=== PATIENT | male | born 2005 | race African-American/Black ===

== ENCOUNTER 2025-03-07 17:35 | Emergency (ER) | payer MEDICAID ==
[~2025-03-07] VITALS: Ht 180.3 cm; Wt 80.0 kg
[2025-03-07 17:37] VITALS: O2SAT 97
[2025-03-07] MEDS ORDERED: LORAZEPAM 2MG/ML INJ IM ONE (18:00)
[2025-03-07] MEDS: DIPHENHYDRAMINE 50MG/ML VIAL IM ONE (18:08)
[2025-03-07] MEDS: LORAZEPAM 2MG/ML UD SYRINGE IM SCH (18:08)
[2025-03-07 20:00] LABS: CARBON DIOXIDE 25 mEq/L (21-32); CHLORIDE 108 mEq/L (98-107); POTASSIUM 4.1 mEq/L (3.5-5.1); SODIUM 140 mEq/L (136-145)
[2025-03-07 20:01] LABS: CALCIUM 8.8 mg/dL (8.7-10.4)
[2025-03-07 20:06] LABS: CREATININE 0.7 mg/dL (0.6-1.3); GLUCOSE 98 mg/dL (70-105); UREA NITROGEN BLOOD < 5 mg/dL (9-23)
[2025-03-07 20:07] LABS: ETHANOL BLOOD < 10 mg/dL (<10)
[2025-03-07 20:39] LABS: BASOPHILS % 0.4 % (0.0-2.0); EOSINOPHILS % 3.1 % (0.0-5.0); HEMATOCRIT. 36.2 % (42.0-52.0); HEMOGLOBIN. 11.7 g/dL (14.0-18.0); LYMPHOCYTES % 15.9 % (20.0-50.0); MEAN CORPUSCULAR HEMOGLOBIN 30.5 pg (28.0-32.0); MEAN CORPUSCULAR HGB CONC 32.4 g/dL (31.0-37.0); MEAN CORPUSCULAR VOLUME 94.2 fL (80.0-94.0); MEAN PLATELET VOLUME 9.6 fl (7.4-10.4); MONOCYTES % 3.9 % (2.0-8.0); NEUTROPHILS % 76.7 % (40.0-76.0); PLATELET 347 x1000/uL (130-400); RED BLOOD CELL COUNT 3.84 mill/uL (4.7-6.1); WHITE BLOOD COUNT 8.4 x1000/uL (4.5-11.0)
[2025-03-07 20:44] LABS: DIFFERENTIAL COMMENT 1
[2025-03-07 20:45] LABS: ADD RBC MORPHOLOGY YES
[2025-03-07 21:14] LABS: PLATELET ESTIMATE NORMAL
[2025-03-07 21:15] LABS: ANISOCYTOSIS 3+; OVALOCYTES 1+
[2025-03-07 21:24] VITALS: BP 114/54; PULSE 103; RESP 18; TEMP 36.9; O2SAT 100
== END 2025-03-07 22:02 | disposition home or self-care (01) ==
LOC: ER 17:49
DX: S00.83XA Contusion of other part of head, initial encounter (principal); R56.9 Unspecified convulsions; F84.0 Autistic disorder; W18.39XA Other fall on same level, initial encounter; Y93.89 Activity, other specified; Y92.89 Other specified places as the place of occurrence of the external cause; Y99.8 Other external cause status
CPT/HCPCS: 80048; 80320; 85025; 36415; 70450; 96372; 99285; J1200; J2060; Z7610 ×2; A4606; G0480